=== PATIENT | female | born 1985 | race Caucasian/White ===

== ENCOUNTER 2019-07-08 17:52 | Emergency (ER) | payer OTHER ==
[2019-07-08 18:30] LABS: Urine Blood TRACE (NEG); Urine Glucose NEGATIVE (NEG); Urine Protein NEGATIVE (NEG)
[2019-07-08 18:58] LABS: Absolute Lymphocytes (CBC) 2.4 K/uL (0.7-4.9); Hematocrit 37.2 % (36.0-45.0); Lymphocytes % 35.4 % (15.3-44.8); MPV 8.2 fL (7.6-11.3); RBC Red Blood Cell Count 4.18 M/uL (3.86-4.86)
[2019-07-08 19:07] LABS: Urine Bacteria >50 /HPF (<20); Urine Culture Reflex Order REFLEXED
[2019-07-08 19:18] LABS: Albumin 3.7 g/dL (3.4-5.0); Bilirubin Direct 0.1 mg/dL (0-0.2); Bilirubin Total 0.3 mg/dL (0.2-1.0); Potassium 4.1 mmol/L (3.5-5.1); Protein, Total 7.3 g/dL (6.4-8.2)
--- NOTE | 2019-07-08 20:40 | EDPHYS ---
Physician Documentation [facility] Name: Gisselle Yeboah Age: 34 yrs Sex: Female : 1985 Arrival Date: 07/08/2019 Time: 17:56 Bed 23 Private MD: ED Physician Patrick Brown HPI: 07/08 18:30 This 34 yrs old Female presents to ER via Ambulatory with complaints of cp Fever, Vaginal Discharge, Pelvic Problem. 18:30 The patient presents with a possible exposure to a sexually transmitted disease, cp vaginal discharge, that is green discharge, purulent discharge. 18:30 The patient reports fever, not measured (subjective). Onset: The symptoms/episode cp began/occurred yesterday. 18:30 Patient reports having sexual encounter with and another partner several weeks cp ago. Noticed vaginal discharge and thought it was a yeast infection. No improvement with OTC cream, so she saw her PCP and MILITARY COOK who diagnosed her with bacterial vaginosis and treated her with oral metronidazole. Patient reports she was screened for sexually transmitted diseases and told tests were negative. Vaginal discharge returned and now having lower abdomen pain. MILITARY COOK: 18:33 LMP 06/05/2019 ca1 Historical: - Allergies: 18:08 Ceclor; sv - PMHx: 18:08 Migraines; sv - PSHx: 18:08 ; Knee surgery; sv - Immunization history:: Adult Immunizations up to date. - Social history:: Smoking status: Patient/guardian denies using tobacco. - Ebola Screening: : Patient negative for fever greater than or equal to 101.5 degrees Fahrenheit, and additional compatible Ebola Virus Disease symptoms Patient denies exposure to infectious person Patient denies travel to an Ebola-affected area in the 21 days before illness onset No symptoms or risks identified at this time. ROS: 18:40 Constitutional: Negative for body aches, chills, fever, poor PO intake. cp 18:40 Eyes: Negative for injury, pain, redness, and discharge. cp 18:40 ENT: Negative for drainage from ear(s), ear pain, sore throat, difficulty swallowing, difficulty handling secretions. 18:40 Cardiovascular: Negative for chest pain, palpitations. 18:40 Respiratory: Negative for cough, shortness of breath, wheezing. 18:40 Abdomen/GI: Positive for abdominal pain, of the right lower quadrant and left lower quadrant, Negative for vomiting, diarrhea, constipation, black/tarry stool, rectal bleeding. 18:40 Back: Negative for injury or acute deformity, pain with movement. 18:40 : Positive for pelvic pain, vaginal discharge, Negative for urinary symptoms, flank pain, difficulty urinating. 18:40 Skin: Negative for rash. 18:40 Neuro: Negative for altered mental status, headache, weakness. 18:40 All other systems are negative. Exam: 18:45 Constitutional: The patient appears in no acute distress, alert, awake, comfortable, cp non-toxic, well developed, well nourished. 18:45 Head/Face: Normocephalic, atraumatic. cp 18:45 Eyes: Periorbital structures: appear normal, Conjunctiva: normal, no exudate, no injection, Lids and lashes: appear normal, bilaterally. 18:45 ENT: External ear(s): are unremarkable, Nose: is normal, Mouth: is normal, Posterior pharynx: is normal, airway is patent, no erythema, no exudate. 18:45 Chest/axilla: Inspection: normal, Palpation: is normal, no crepitus, no tenderness. 18:45 Cardiovascular: Rate: normal, Rhythm: regular. 18:45 Respiratory: the patient does not display signs of respiratory distress, Respirations: normal, no use of accessory muscles, no retractions, no splinting, no tachypnea, labored breathing, is not present, Breath sounds: are clear throughout, no decreased breath sounds, no stridor, no wheezing. 18:45 Abdomen/GI: Inspection: abdomen appears normal, Bowel sounds: active, all quadrants, Palpation: soft, in all quadrants, mild abdominal tenderness, in the right lower quadrant and left lower quadrant, rebound tenderness, is not appreciated, involuntary guarding, is not appreciated. 18:45 Back: CVA tenderness, is absent. 18:45 Skin: no rash present. 19:05 : Pelvic Exam: External exam: no lesions, no ulcerations, no warts seen, Speculum cp exam: no bleeding is noted, os that is closed, no tissue in cervix is seen, no tissue in vagina is seen, bimanual exam reveals cervical motion tenderness, uterine tenderness, right adnexal tenderness, left adnexal tenderness, no adnexal mass on right, no adnexal mass on left, discharge, green, the nurse was present for the exam, Sexual behavior: the patient is sexually active, and reports multiple partners. Vital Signs: 18:08 BP 126 / 81; Pulse 77; Resp 16; Temp 98.7; Pulse Ox 100% ; Weight 88 kg; Height 6 ft. 0 sv in. (182.88 cm); 19:16 BP 133 / 88; Pulse 73; Resp 17 S; Pulse Ox 100% on R/A; wh 20:56 BP 123 / 94; Pulse 71; Resp 17 S; Temp 98.5(O); Pulse Ox 100% ; ca1 21:44 BP 128 / 85; Pulse 70; Resp 17 S; Temp 98.4(O); Pulse Ox 100% on R/A; ca1 18:08 Body Mass Index 26.31 (88.00 kg, 182.88 cm) sv MDM: 18:19 Patient medically screened. cp 18:50 Differential diagnosis: cervicitis, UTI, pelvic inflammatory disease, urinary tract cp infection, vaginosis. 20:37 Data reviewed: vital signs, nurses notes, lab test result(s), radiologic studies, cp ultrasound. 20:37 Counseling: I had a detailed discussion with the patient and/or guardian regarding: the cp historical points, exam findings, and any diagnostic results supporting the discharge/admit diagnosis, lab results, radiology results, the need for outpatient follow up, an OB/Gyne specialist, to return to the emergency department if symptoms worsen or persist or if there are any questions or concerns that arise at home. Response to treatment: the patient's symptoms have markedly improved after treatment, and as a result, I will discharge patient. ED course: VSS. Instructed patient on recommendation for all sexual partners to be treated for GC/chlamydia to prevent reinfection. Finish antibiotics before resuming sexual activities. 07/08 18:22 Order name: Urine Dipstick--Ancillary (enter results); Complete Time: 18:34 eb 07/08 18:22 Order name: Urine --Ancillary (enter results); Complete Time: 18:34 eb 07/08 18:36 Order name: Urine Microscopic Only; Complete Time: 20:02 cp 07/08 20:02 Interpretation: Normal except: UWBC 10-20; URBC 5-10; UBACT >50. cp 07/08 18:36 Order name: Basic Metabolic Panel; Complete Time: 20:02 cp 07/08 18:36 Order name: CBC with Diff; Complete Time: 20:02 cp 07/08 18:36 Order name: Creatinine for Radiology; Complete Time: 20:02 cp 07/08 18:36 Order name: Hepatic Function; Complete Time: 20:02 cp 07/08 18:36 Order name: Lipase; Complete Time: 20:02 cp 07/08 18:36 Order name: IV Saline Lock; Complete Time: 18:55 cp 07/08 18:36 Order name: GC (GONORR/CHLAMYDIA) Probe cp 07/08 18:36 Order name: Wet Prep; Complete Time: 20:02 cp 07/08 18:36 Order name: US Transvaginal Study (Probe); Complete Time: 21:10 cp 07/08 21:10 Interpretation: Reviewed report. cp 07/08 19:10 Order name: Urine Culture EDMS 07/08 18:36 Order name: Labs collected and sent; Complete Time: 18:55 cp 07/08 18:36 Order name: Pelvic Exam Setup; Complete Time: 18:43 cp Administered Medications: 20:55 Drug: Rocephin - (cefTRIAXone) 1 grams Route: IVPB; Infused Over: 30 mins; Site: left ca1 antecubital; 21:47 Follow up: Response: No adverse reaction; IV Status: Completed infusion ca1 Disposition: 07/08/19 20:38 Discharged to Home. Impression: Abdominal and pelvic pain. - Condition is Stable. - Discharge Instructions: Pelvic Pain, Female. - Prescriptions for Diflucan 150 mg Oral Tablet - take 1 tablet by ORAL route every other day for 2 days; 2 tablet. Ibuprofen 800 mg Oral Tablet - take 1 tablet by ORAL route every 8 hours As needed take with food; 30 tablet. Doxycycline Hyclate 100 mg Oral Tablet - take 1 tablet by ORAL route every 12 hours; 20 tablet. Metronidazole 500 mg Oral Tablet - take 1 tablet by ORAL route every 8 hours; 30 tablet. - Medication Reconciliation Form, Thank You Letter, Antibiotic Education, Prescription Opioid Use form. - Follow up: Private Physician; When: 1 week; Reason: Recheck today's complaints. - Problem is new. - Symptoms have improved. Addendum: 07/11/2019 09:33 Co-signature as Attending Physician, Patrick Brown MD I agree with the assessment and k dr plan of care. Signatures: Dispatcher [employer] Anahi Serna, RN RN Patrick Hernandes MD MD [facility] Ryne Robert PA PA cp Acob, Magali RN RN ca1 Corrections: (The following items were deleted from the chart) 07/08 21:48 20:38 07/08/2019 20:38 Discharged to Home. Impression: Abdominal and pelvic pain. ca1 Condition is Stable. Forms are Medication Reconciliation Form, Thank You Letter, Antibiotic Education, Prescription Opioid Use. Follow up: Private Physician; When: 1 week; Reason: Recheck today's complaints. Problem is new. Symptoms have improved. cp 07/09 19:15 19:13 The patient reports fever, not measured (subjective), cp cp 19:15 19:13 Onset: The symptoms/episode began/occurred yesterday, cp cp
--- NOTE | 2019-07-08 20:40 | ER ---
Nurse's Notes [facility] Name: Gisselle Yeboah Age: 34 yrs Sex: Female : 1985 Arrival Date: 07/08/2019 Time: 17:56 Bed 23 Private MD: Diagnosis: Abdominal and pelvic pain Presentation: 07/08 18:06 Presenting complaint: Patient states: "My and I had a wild night out a few sv weeks ago and we used protection with the other alliance party and I saw my TOOL AND DIE TECHNICIAN and did a full STD panel and said it was negative." Was given prescriptions and has finished those but the symptoms are back and she now has green vaginal discharge, lower abd pain, vulva and labia swelling. Transition of care: patient was not received from another setting of care. Onset of symptoms was July 08, 2019. Risk Assessment: Do you want to hurt yourself or someone else? Patient reports no desire to harm self or others. Care prior to arrival: None. 18:06 Method Of Arrival: Ambulatory sv 18:06 Acuity: DAVID 3 sv 18:33 Initial Sepsis Screen: Does the patient meet any 2 criteria? No. Patient's initial ca1 sepsis screen is negative. Does the patient have a suspected source of infection? No. Patient's initial sepsis screen is negative. Triage Assessment: 18:06 General: Appears in no apparent distress. uncomfortable, well developed, Behavior is sv calm, cooperative, appropriate for age. Pain: Complains of pain in suprapubic area, right lower quadrant and left lower quadrant. Neuro: Level of Consciousness is awake, alert, obeys commands, Oriented to person, place, time, situation, Gait is steady. Respiratory: Respiratory effort is even, unlabored, Respiratory pattern is regular, symmetrical. : Reports discharge, green. TOOL AND DIE TECHNICIAN: 18:33 LMP 06/05/2019 ca1 Historical: - Allergies: 18:08 Ceclor; sv - PMHx: 18:08 Migraines; sv - PSHx: 18:08 ; Knee surgery; sv - Immunization history:: Adult Immunizations up to date. - Social history:: Smoking status: Patient/guardian denies using tobacco. - Ebola Screening: : Patient negative for fever greater than or equal to 101.5 degrees Fahrenheit, and additional compatible Ebola Virus Disease symptoms Patient denies exposure to infectious person Patient denies travel to an Ebola-affected area in the 21 days before illness onset No symptoms or risks identified at this time. Screenin:29 Abuse screen: Denies threats or abuse. Denies injuries from another. Nutritional ca1 screening: No deficits noted. Tuberculosis screening: No symptoms or risk factors identified. Fall Risk None identified. Assessment: 18:29 General: Appears in no apparent distress. comfortable, Behavior is calm, cooperative, ca1 appropriate for age. Pain: Complains of pain in abdomen and left lower quadrant and right lower quadrant and suprapubic area Pain currently is 2 out of 10 on a pain scale. Pain began 1 day ago. Neuro: Level of Consciousness is awake, alert, obeys commands, Oriented to person, place, time, situation. Cardiovascular: Heart tones S1 S2 present Capillary refill < 3 seconds Patient's skin is warm and dry. Respiratory: Airway is patent Respiratory effort is even, unlabored, Respiratory pattern is regular, symmetrical, Breath sounds are clear bilaterally. GI: Abdomen is flat, non-distended, Bowel sounds present X 4 quads. Abd is soft and non tender X 4 quads. : Reports burning with urination, since yesterday discharge, green, since yesterday urgency, urinary frequency. EENT: No deficits noted. No signs and/or symptoms were reported regarding the EENT system. Derm: Skin is intact, is healthy with good turgor, Skin is pink, warm \\T\\ dry. Musculoskeletal: Circulation, motion, and sensation intact. Capillary refill < 3 seconds, Range of motion: intact in all extremities. 19:16 Reassessment: Patient appears in no apparent distress at this time. Patient and/or wh family updated on plan of care and expected duration. Pain level reassessed. Patient is alert, oriented x 3, equal unlabored respirations, skin warm/dry/pink. 20:00 Reassessment: Patient appears in no apparent distress at this time. Patient and/or ca1 family updated on plan of care and expected duration. Pain level reassessed. Patient is alert, oriented x 3, equal unlabored respirations, skin warm/dry/pink. 20:56 Reassessment: Patient appears in no apparent distress at this time. Patient is alert, ca1 oriented x 3, equal unlabored respirations, skin warm/dry/pink. IV antibiotics infusing. Will discharge once completed. 21:44 Reassessment: Patient appears in no apparent distress at this time. Patient is alert, ca1 oriented x 3, equal unlabored respirations, skin warm/dry/pink. Vital Signs: 18:08 BP 126 / 81; Pulse 77; Resp 16; Temp 98.7; Pulse Ox 100% ; Weight 88 kg; Height 6 ft. 0 sv in. (182.88 cm); 19:16 BP 133 / 88; Pulse 73; Resp 17 S; Pulse Ox 100% on R/A; wh 20:56 BP 123 / 94; Pulse 71; Resp 17 S; Temp 98.5(O); Pulse Ox 100% ; ca1 21:44 BP 128 / 85; Pulse 70; Resp 17 S; Temp 98.4(O); Pulse Ox 100% on R/A; ca1 18:08 Body Mass Index 26.31 (88.00 kg, 182.88 cm) sv ED Course: 17:56 Patient arrived in ED. mr 18:07 Triage completed. sv 18:08 Arm band placed on. sv 18:12 Magali Antony, RN is Primary Nurse. ca1 18:18 Ryne Robert PA is PHCP. cp 18:18 Patrick Brown MD is Attending Physician. cp 18:29 Patient has correct armband on for positive identification. Placed in gown. Bed in low ca1 position. Call light in reach. Side rails up X 1. Pulse ox on. NIBP on. Warm blanket given. 18:53 Initial lab(s) drawn, by ms, sent to lab. Inserted saline lock: 18 gauge 20 gauge in tm3 left antecubital area, using aseptic technique. 19:18 Assist provider with pelvic exam: Set up pelvic tray. Performed by Magali Antony RN ca1 Specimens sent to lab. Patient tolerated well. 19:59 Ultrasound completed. Patient tolerated well. sg3 20:01 US Transvaginal Study (Probe) In Process Unspecified. EDMS 21:46 IV discontinued, intact, bleeding controlled, No redness/swelling at site. Pressure ca1 dressing applied. Administered Medications: 20:55 Drug: Rocephin - (cefTRIAXone) 1 grams Route: IVPB; Infused Over: 30 mins; Site: left ca1 antecubital; 21:47 Follow up: Response: No adverse reaction; IV Status: Completed infusion ca1 Outcome: 20:38 Discharge ordered by . sepideh 21:46 Discharged to home ambulatory. ca1 21:46 Condition: stable 21:46 Discharge instructions given to patient, Instructed on discharge instructions, follow up and referral plans. medication usage, safe sex practices, Demonstrated understanding of instructions, follow-up care, medications, Prescriptions given X 4. 21:48 Patient left the ED. ca1 Signatures: Dispatcher [employer] EDMS Juwan Bynum tm3 Anahi Doherty RN RN Kalee Cuevas mr Ryne Robert PA PA cp Habalo, Winsy Marsha Vaughn sg3 Magali Antony RN RN ca1 Corrections: (The following items were deleted from the chart) 18:09 18:08 Pulse 77bpm; Resp 16bpm; Pulse Ox 100%; Temp 98.7F; 88 kg; Height 6 ft. 0 in.; sv BMI: 26.3; sv 18:14 18:06 Presenting complaint: Patient states: "My and I had a wild night out a sv few weeks ago and I saw my TOOL AND DIE TECHNICIAN and did a full STD panel and said it was negative." Was given prescriptions and has finished those but the symptoms are back and she now has green vaginal discharge, lower abd pain, vulva and labia swelling. sv 19:19 19:17 Assist provider with pelvic exam: Set up pelvic tray. Performed by Ryne GREGORY ca1 Specimens sent to lab. Patient tolerated well.
--- NOTE | 2019-07-08 20:47 | RAD REPORT ---
EXAM DESCRIPTION: US - Transvaginal Study Probe - 07/08/2019 8:15 pm CLINICAL HISTORY: Pelvic pain COMPARISON: 2017 FINDINGS: The uterus measures 8 x 4 x 4cm. A fibroid is not seen. Endometrial stripe measures 8 mill imeter The ovaries are normal in size and echotexture. 1.3 centimeter complex left ovarian follicle. Right and left adnexal unremarkable No significant free fluid is seen. IMPRESSION: Unremarkable pelvic ultrasound
[2019-07-08] MEDS ORDERED: NA CHLORIDE 0.9% 100 ML IV ONE (20:49)
[2019-07-08] MEDS ORDERED: CEFTRIAXONE 1000 MG/VIAL ONE (20:49)
[2019-07-08 22:15] VITALS: O2SAT 100
[2019-07-08 22:19] VITALS: BP 128/85; TEMP 98.4
[2019-07-12 10:04] LABS: C.trachomatis RNA,TMA Not Detected (Not Detected)
== END 2019-07-08 21:48 | disposition home or self-care (01) ==
LOC: ER 17:52
DX: R10.2 Pelvic and perineal pain (principal); R10.9 Unspecified abdominal pain; Z88.8 Allergy status to other drugs, medicaments and biological substances
CPT/HCPCS: 36415; 76830; 80048; 80076; 81003; 81015; 81025; 83690; 85025; 87086; 87088; 87210; 87490; 87590; 96365; 99284

== ENCOUNTER 2022-10-05 09:44 | Inpatient (IN) | payer BC, OTHER ==
--- OUTSIDE RECORDS SUMMARY | 2022-10-05 09:53 | XMS REPORT | Continuity of Care Document ---
:1985 Author Organization [facility] t Address [address] [place] [address] Dr. Carranza. [address] [place] [address] Care Team Providers Name Role Phone PCP, PATIENT DOES NOT HAVE A Primary Care Physician UnavailWICHO Mackenzie Attending Clinician Unavailable Wicho Avendano MD Attending Clinician Case RNMaeve Attending Clinician Unavailable Doctor Unassigned, [place] Attending Clinician Unavailable ABE PIERCE Attending Clinician Unavailable Kellee Ashford Attending Clinician Lab, Adc Fam Pob I Attending Clinician Unavailable JACINTO HENNING Attending Clinician Unavailable Pob1, Acute [facility] Attending Clinician Unavailable KELLEE JOHNSON Attending Clinician Unavailable DR EVELYN MAY Attending Clinician Unavailable VANESSA DELACRUZ Admitting Clinician Unavailable DR EVELYN MAY Admitting Clinician Unavailable Payers Payer Name Policy Type Policy Number Effective Date Expiration Date S ource BCBS [facility] - [id number] 2021 00:00:00 OUT OF STATE [employer]IG[employer] GENERIC [id number] 2020 00:00:00 Problems Condition Condition Condition Status Onset Resolution Last Treating Co mments Source Name Details Category Date Date Treatment Clinician Date Lymphadeno Lymphadeno Disease Active U nivers williams williams 6-04 ity of 00:00: [place] [address] Medical Branch Other Other Disease Active 2019-11 Univers migraine migraine 2-08 ity of without without 00:00: [place] status status 00 Medical migrainosu migrainosu Br anch s, not s, not intractabl intractabl e e History of History of Disease Active 2019-11 U nivers gestationa gestationa 2-08 it y of l l 00:00: [place] hypertensi hypertensi 00 Me dical on on Branch History of History of Disease Active 2019-11 U nivers 2-08 ity of section section 00:00: [place] 00 Medical Branch Allergies, Adverse Reactions, Alerts Allergy Allergy Status Severity Reaction(s) Onset Inactive Treating Comm ents Source Name Type Date Date Clinician Cefaclor Drug Active Unknown - 2019-11 Unive rs Allergy See comments 12-17 ity of 00:00: [place] 00 Medical Branch CEFACLOR DRUG Active Unknown-Cmnt 2019-11 Un jeanette INGREDI 2 ity of 00:00: [place] 00 Medical Branch Social History Social Habit Start Date Stop Date Quantity Comments Source History SDOH University o f Alcohol Std [place] Medical Drinks Branch History SDOH University o f Alcohol Binge [place] [facility] al Branch History SDOH University o f Alcohol Comment [place] [facility] ical [facility] Alcohol intake 2021-05-02 2021-05-02 Lifetime University of 00:00:00 00:00:00 non-drinker [place] [facility] (finding) Branch History SDOH 2020-10-16 2020-10-16 1 University o f Alcohol Frequency 00:00:00 00:00:00 [facility] edical Branch Tobacco use and 2020-05-10 2020-05-10 Never used Universit y of exposure 00:00:00 00:00:00 [facility] Sex [birth year] Universit y of 00:00:00 00:00:00 [facility] Branch Smoking Status Start Date Stop Date Source Never smoker [facility] Medical Branch Medications Ordered Filled Start Stop Current Ordering Indication Dosage Frequency Signature Comments Components Source Medication Medication Date Date Medication? Clinician (SIG) Name Name raenoiiv21/ 2021- No Take by Un jeanette iron 02-25 mouth. ity of marquez/folic/ 16:28: 00:00 [place] dha 42 :00 Medical ( Branch DHA+COMPLET E ORAL) LECITHIN, 2021- No Univers BULK, MISC 4-19 -19 ity of 16:28: 00:00 [place] 33 :00 Medical Branch zolpidem Yes Ambien Univers (AMBIEN) 10 4-19 ity of mg tablet 15:11: Medical Branch IBUPROFEN Yes Take by Unive rs ORAL 4-19 mouth. ity of 15:11: Medical Branch zolpidem Yes Ambien Univers (AMBIEN) 10 4-19 ity of mg tablet 15:11: Medical Branch IBUPROFEN Yes Take by Unive rs ORAL 4-19 mouth. ity of 15:11: Medical Branch zolpidem Yes Ambien Univers (AMBIEN) 10 - ity of mg tablet 15:11: Medical Branch IBUPROFEN Yes Take by Unive rs ORAL 4-19 mouth. ity of 15:11: Medical Branch norethindro Yes [id number] 1{tbl} Take 1 Univers ne-e.estrad 4-19 tablet by ity of ioL-iron 00:00: mouth [place] (LO 00 daily. Medical LOESTRIN Branch FE) 1 mg-10 mcg (24)/10 mcg (2) per tablet norethindro Yes [id number] 1{tbl} Take 1 Univers ne-e.estrad 4-19 tablet by ity of ioL-iron 00:00: mouth [place] (LO 00 daily. Medical LOESTRIN Branch FE) 1 mg-10 mcg (24)/10 mcg (2) per tablet norethindro Yes [id number] 1{tbl} Take 1 Univers ne-e.estrad 4-19 tablet by ity of ioL-iron 00:00: mouth [place] (LO 00 daily. Medical LOESTRIN Branch FE) 1 mg-10 mcg (24)/10 mcg (2) per tablet FAMOTIDINE 2020-11 Yes [id number] TAKE 1 Univers 40 mg 2-27 TABLET BY ity of tablet 00:00: MOUTH [place] 00 EVERY 24 Medical HOURS Branch NEEDED FOR INDIGESTIO N FAMOTIDINE 2020-11 Yes [id number] TAKE 1 Univers 40 mg 2-27 TABLET BY ity of tablet 00:00: MOUTH [place] 00 EVERY 24 Medical HOURS Branch NEEDED FOR INDIGESTIO N FAMOTIDINE 2020-11 Yes [id number] TAKE 1 Univers 40 mg 2-27 TABLET BY ity of tablet 00:00: MOUTH [place] 00 EVERY 24 Medical HOURS Branch NEEDED FOR INDIGESTIO N sumatriptan 2019-11 Yes Univer s 100 mg 1-04 ity of tablet 00:00: [place] [facility] sumatriptan 2019-11 Yes Univer s 100 mg 1-04 ity of tablet 00:00: Medical Branch sumatriptan 2019-11 Yes Univer s 100 mg 1-04 ity of tablet 00:00: [place] 00 [facility] Immunizations Ordered Filled Immunization Date Status Comments [facility] e Immunization Name Name TDAP 2021-01-10 Completed [facility] 00:00:00 [facility] TDAP 2021-01-10 Completed [facility] 00:00:00 [facility] TDAP 2021-01-10 Completed [facility] 00:00:00 [facility] Influenza Virus 2020-10-16 Completed Universit y of Vaccine Quad .5 mL 00:00:00 [facility] IM 6+ [place] Branch Influenza Virus 2020-10-16 Completed Universit y of Vaccine Quad .5 mL 00:00:00 [facility] IM 6+ [place] Branch Influenza Virus 2020-10-16 Completed Universit y of Vaccine Quad .5 mL 00:00:00 [facility] IM 6+ [place] Branch Vital Signs Vital Name Observation Time Observation Value Comments Source Systolic blood 2022-02-25 20:10:00 120 mm[Hg] Univer sity of pressure [facility] Diastolic blood 2022-02-25 20:10:00 77 mm[Hg] Unive rsity of pressure [facility] Heart rate 2022-02-25 20:10:00 71 /min [facility] Body temperature 2022-02-25 20:10:00 36.56 Ambika [facility] Respiratory rate 2022-02-25 20:10:00 18 /min [facility] Body height 2022-02-25 20:10:00 182.9 cm [facility] Body weight 2022-02-25 20:10:00 102.513 kg [facility] BMI 2022-02-25 20:10:00 30.65 kg/m2 [facility] Procedures Procedure Date / Time Performed Performing Clinician Henry e TESTOSTERONE, FREE 2022-04-17 16:38:00 Wicho Avendano of [place] AND$TOTAL, LC/MS/MS-Q Medical Br anch Encounters Start End Encounter Admission Attending Care Care Encounter Source Date/Time Date/Time Type Type Clinicians Facility Department ID 2021-09-08 Outpatient P [facility] MADELYN [id number] Univers 18:35:41 ity [facility] 2022-06-26 2022-06-26 Outpatient R WICHO AVENDANO [facility] [id number] Univers 13:30:00 13:30:00 ity [facility] 2022-06-09 2022-06-09 Outpatient R WICHO AVENDANO [facility] [id number] Univers 14:00:00 14:00:00 ity [facility] 2022-04-17 2022-04-17 Orders Wicho Avendano [id number] Univers 00:00:00 00:00:00 Only PATI [id number] it y of HOSPITAL 4.2.7.2.686 [place] as [id number] [facility] 009 Branch 2022-03-07 2022-03-07 Patient Case, Maeve NVIMANI WORKMAN [id number] Univers 00:00:00 00:00:00 Secure Msg Armani SUMNER [id number] ity [place] [facility] [id number] [facility] 134 Branch 2022-02-25 2022-02-25 Outpatient R WICHO AVENDANO [facility] [id number] Univers 15:00:00 15:46:47 ity [facility] 2022-02-25 2022-02-25 Office Wicho Avendano [facility] WORKMAN [id number] Univers 15:00:00 15:46:47 Visit TAISHA [id number] it y of [place] [facility] [id number] [facility] 134 Branch 2022-02-25 2022-02-25 Barbie SERVIN [id number] Univers 00:00:00 00:00:00 Only Unassigned, PATI [id number] ity of [place] [facility] 4.2.7.2.686 [place] [id number] [address] 2022-02-17 2022-02-17 Orders Doctor GARETH [id number] Univers 00:00:00 00:00:00 Only Unassigned, PATI [id number] ity of [place] [facility] 4.2.7.2.686 [place] [id number] [address] 2021-11-12 2021-11-12 Orders Doctor GARETH [id number] Univers 00:00:00 00:00:00 Only Unassigned, PATI 350.1.13.10 ity of [place] [facility] 4.2.7.2.686 [place] [id number] [address] 2021-10-31 2021-10-31 Refill Wicho Avendano [facility] [id number] Univers 00:00:00 00:00:00 TAISHA [id number] it y of W[place]2.[place] [facility] [id number] [place] [address] Branch 2021-05-16 2021-05-16 Outpatient R LANCE AVENDANON [facility] [id number] Univers 13:30:00 13:30:00 ity [facility] 2021-05-02 2021-05-02 Outpatient R LANCE AVENDANON [facility] [id number] Univers 13:00:00 13:00:00 ity [facility] 2021-04-11 2021-04-11 Outpatient R LANCE AVENDANON [facility] [id number] Univers 16:15:00 16:15:00 ity [facility] 2021-03-28 2021-03-28 Outpatient R [facility] [id number] Univers 14:00:00 14:00:00 ity [facility] 2021-03-21 2021-03-21 Outpatient R LANCE AVENDANON [facility] [id number] Univers 09:45:00 09:45:00 ity [facility] 2021-03-14 2021-03-14 Outpatient R WICHO AVENDANO [facility] [id number] Univers 08:30:00 08:30:00 ity of [facility] 2021-03-07 2021-03-07 Outpatient R WICHO AVENDANO [facility] [id number] Univers 08:30:00 08:30:00 ity of [facility] 2021-02-28 2021-02-28 Outpatient R WICHO AVENDANO [facility] [id number] Univers 08:00:00 08:00:00 ity of [facility] 2021-02-26 2021-02-26 Outpatient R WICHO AVENDANO [facility] [id number] Univers 13:45:00 13:45:00 ity of [facility] 2021-02-11 2021-02-11 Outpatient R WICHO AVENDANO [facility] [id number] Univers 09:30:00 09:30:00 ity of [facility] 2021-02-08 2021-02-08 Outpatient P [facility] [id number] Univers 12:00:00 12:00:00 ity of [facility] 2021-02-04 2021-02-04 Outpatient P [facility] [id number] Univers 15:00:00 15:00:00 ity [facility] 2021-01-24 2021-01-24 Outpatient R WICHO AVENDANO [facility] [id number] Univers 08:30:00 08:30:00 ity of [facility] 2021-01-18 2021-01-18 Outpatient R WICHO AVENDANO [facility] [id number] Univers 11:30:00 11:30:00 ity of [facility] 2021-01-14 2021-01-14 Outpatient R FISHWICHO [facility] [id number] Univers 13:15:00 13:15:00 ity of [facility] 2021-01-10 2021-01-10 Outpatient R FISHWICHO [facility] [id number] Univers 13:30:00 13:30:00 ity of [facility] 2020-12-13 2020-12-13 Outpatient R WICHO AVENDANO [facility] [id number] Univers 16:15:00 16:15:00 ity [facility] 2020-12-10 2020-12-10 Outpatient P [facility] [id number] Univers 14:30:00 14:30:00 ity [facility] 2020-11-15 2020-11-15 Outpatient R WICHO AVENDANO [facility] [id number] Univers 14:15:00 14:15:00 ity [facility] 2020-11-12 2020-11-12 Outpatient P [facility] [id number] Univers 14:15:00 14:15:00 ity [facility] 2020-10-22 2020-10-22 Outpatient R WICHO AVENDANO [facility] [id number] Univers 16:20:00 16:20:00 ity [facility] 2020-10-16 2020-10-16 Outpatient R WICHO AVENDANO [facility] [id number] Univers 15:45:00 15:45:00 ity [facility] 2020-08-22 2020-08-22 Outpatient R ABE PIERCE [facility] [id number] Univers 14:15:00 14:15:00 ity [facility] 2020-05-31 2020-05-31 Telephone MaríaGARETH young [id number] 00:00:00 00:00:00 Kellee KRUEGER 350.1.13.10 [facility] 4.2.7.2.686 [id number] 2020-05-30 2020-05-30 Laboratory Lab, [facility] [id number] [id number] 12:51:52 13:11:52 Only Fam Pob I Health [id number] [place] 4.2.7.2.686 Professio [id number] nal [address] 2020-05-30 2020-05-30 Outpatient R [facility] [id number] Univers 13:00:00 13:00:00 ity [facility] 2020-05-24 2020-05-24 Outpatient R JUVENCIO [facility] [id number] Univers 09:40:00 09:40:00 OMAYEMI ity [facility] 2020-05-10 2020-05-10 Urgent Pob1, Acute [facility] [id number] 14:31:46 14:51:46 [facility] 350.1.13.10 [place] 4.2.7.2.686 Dm [id number] nal [address] 2020-05-10 2020-05-10 Outpatient Deepa JOHNSON [facility] [id number] Univers 14:20:00 14:20:00 KELLEE see [facility] 2018-09-13 2018-09-13 [facility] [id number] 05:26:00 12:05:00 [facility] Results Test Description Test Time Test Comments Results Result Comments Source TESTOSTERONE, FREE AND$TOTAL, LC/MS/MS-Q 2022-04-20 17:00:00 Test Item Value Reference Range Interpretation Comme nts TESTOSTERONE, 13 ng/dL 2-45 For additiona l information, please refer TOTAL, tohttps://educa tion.[employer].Yellow Chip/faq/VRA925(This LC/MS/MS-Q link is being p rovided for informational/educational (test code = purposes only.) (Note) This test was developed and its 2986-8) analytical perf ormancecharacteristics have been determined by dionte [employer]fusion. It has notbeen cleared or approved by the FDA. This assay has been validatedpursua nt to the CLIA regulations and is used for clinical purpos es. FREE 0.7 0.1-6 (Note)This test was developed and its analytical TESTOSTERONE-Q pg/mL .4 performance c haracteristics have been determined by (test code = medfusion. It h as not been cleared or approved by the 2991-8) FDA. This assay has been validated pursuant to the CLIA regulations and is used for clinical purposes. Jaquelineed [email or web address] [place] [address],[address] [place] [address] [id number] [id number] DANYEL Sandy (test code PERFORME = DANYEL) D BY KG Gibbs; [address] [address] [place] [address] [phone] [id number]; Dionte SANDY [facility]
[2022-10-05] MEDS ORDERED: ONDANSETRON 4 MG/2 ML VIAL ONE ×3 (10:00→20:50)
[2022-10-05] MEDS ORDERED: KETOROLAC 30 MG/ML INJ ONE ×2 (10:00→16:12)
[2022-10-05] MEDS ORDERED: NA CHLORIDE 0.9% 1,000 ML ONE ×3 (10:01→21:29)
[2022-10-05 10:03] LABS: Urine Blood 2+ (Negative); Urine Glucose Negative (Negative); Urine Protein 2+ (Negative); Urine pH 5.5 (5.0-7.0)
[2022-10-05 10:09] LABS: Absolute Lymphocytes (CBC) 1.2 K/uL (0.7-4.9); Hematocrit 39.9 % (36.0-45.0); Lymphocytes % 7.2 % (15.3-44.8); MCV 87.7 fL (80-100); MPV 7.8 fL (7.6-11.3); RBC Red Blood Cell Count 4.55 M/uL (3.86-4.86)
[2022-10-05 10:26] LABS: Albumin 3.5 g/dL (3.4-5.0); Bilirubin Total 0.6 mg/dL (0.2-1.0); Potassium 3.4 mmol/L (3.5-5.1); Protein, Total 7.7 g/dL (6.4-8.2)
--- NOTE | 2022-10-05 11:06 | RAD REPORT ---
EXAM DESCRIPTION: CT - Abdomen Pelvis W Contrast - 10/05/2022 10:44 am CLINICAL HISTORY: Abdominal pain COMPARISON: none. TECHNIQUE: Computed axial tomography of the abdomen pelvis was obtained. 100 cc Isovue-300 was admin istered intravenously. Oral contrast was not requested which limits evaluation of bowel and appendix All CT scans are performed using dose optimization technique as appropriate and may include automated exposure control or mA/KV adjustment according to patient size. FINDINGS: The liver, spleen, pancreas, adrenal and left kidney appear unremarkable. Several low-density areas right kidney which reach the periphery. Largest measures 2.5 centimeters. T his likely indicates pyelonephritis. There is no evidence of diverticulitis. No adnexal mass IMPRESSION: Moderate right pyelonephritis
[2022-10-05 11:45] LABS: Transitional Epithelial <5 /HPF (None Seen); Urine Bacteria 20-50 /HPF (<20); Urine Mucus 1+ /HPF (None Seen)
[2022-10-05 12:07] LABS: SARS-COV-2 RT PCR NEGATIVE (NEGATIVE)
[2022-10-05] MEDS ORDERED: Levofloxacin 750mg IV 0 MG/0 ML BAG IV ONE (12:11)
--- NOTE | 2022-10-05 12:11 | ER ---
Nurse's Notes [facility] [place] Name: Gisselle Yeboah Age: 37 yrs Sex: Female : 1985 Arrival Date: 10/05/2022 Time: 09:44 Bed 26 Private MD: Diagnosis: Pyelonephritis acute;Elevated white blood cell count, unspecified Presentation: 10/05 09:51 Chief complaint: Patient states: Burning with urination, bilateral flank pain, body jl7 aches, chills, fever. Coronavirus screen: At this time, the client does not indicate any symptoms associated with coronavirus-19. Ebola Screen: No symptoms or risks identified at this time. 09:51 Method Of Arrival: Wheelchair [facility] 09:54 Initial Sepsis Screen: Does the patient meet any 2 criteria? HR > 90 bpm. Does the jl7 patient have a suspected source of infection? Yes: Dysuria/Frequency/Urgency/UTI. Risk Assessment: Do you want to hurt yourself or someone else? Patient reports no desire to harm self or others. Onset of symptoms was October 03, 2022. 09:54 Acuity: DAVID 3 jl7 Triage Assessment: 09:59 General: Appears in no apparent distress. uncomfortable, ill, Behavior is cooperative, jl7 restless. Pain: Complains of pain in left flank, right flank and abdomen Pain currently is 10 out of 10 on a pain scale. 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 - Social history:: Smoking status: unknown. Screenin:03 Abuse screen: Denies threats or abuse. Nutritional screening: Has had N/V for 3 or more ll1 days. Tuberculosis screening: No symptoms or risk factors identified. Fall Risk IV access (20 points). Gait- Weak (10 pts.). Mental Status- Overestimates/Forgets Limitations (15 pts.). Total Ruiz Fall Scale indicates High Risk Score (45 or more points). Fall prevention measures have been instituted. Side Rails Up X 2 Placed Close to Nursing Station Frequent Obs/Assessments Occuring Family Present and informed to notify staff if the need to leave the bedside As available patient and family educated on Fall Prevention Program and Strategies. Assessment: 10:36 General: Appears uncomfortable, ill, well developed, Behavior is cooperative, flat, kr3 quiet. Pain: Complains of pain in all over body aches. Neuro: Level of Consciousness is awake, alert, obeys commands, Oriented to person, place, time. Cardiovascular: Patient's skin is warm and dry. Respiratory: Airway is patent Trachea Respiratory effort is even, unlabored, Respiratory pattern is regular, symmetrical. GI: Reports nausea, vomiting. : Reports pain flank(s), with urination. EENT: No signs and/or symptoms were reported regarding the EENT system. Derm: Skin is intact. Musculoskeletal: Circulation, motion, and sensation intact. 10:56 Reassessment: No changes from previously documented assessment. Patient and/or family ll1 updated on plan of care and expected duration. Pain level reassessed. 11:31 Reassessment: No changes from previously documented assessment. Patient and/or family ll1 updated on plan of care and expected duration. Pain level reassessed. Patient is alert, oriented x 3, equal unlabored respirations, skin warm/dry/pink. 13:00 Reassessment: Patient appears in no apparent distress at this time. Patient and/or hb family updated on plan of care and expected duration. Pain level reassessed. Patient is alert, oriented x 3, equal unlabored respirations, skin warm/dry/pink. 14:00 Reassessment: No changes from previously documented assessment. Patient and/or family ll1 updated on plan of care and expected duration. Pain level reassessed. Patient is alert, oriented x 3, equal unlabored respirations, skin warm/dry/pink. 14:49 Reassessment: No changes from previously documented assessment. to restroom via ll1 wheelchair. 10/06 11:53 Reassessment: see [facility] chidien admitted. kr3 Vital Signs: 10/05 09:54 BP 117 / 100; Pulse 160; Resp 15; Temp 99.6(O); Pulse Ox 100% on R/A; Weight 88.45 kg; jl7 Height 6 ft. (182.88 cm); Pain 10/10; 10:20 BP 96 / 60; Pulse 139; Resp 16; Pulse Ox 98% on R/A; ll1 10:56 BP 96 / 64; Pulse 97; Pulse Ox 99% ; ll1 11:30 BP 98 / 74; Pulse 98; Pulse Ox 98% on R/A; ll1 13:15 BP 100 / 67; Pulse 96; Pulse Ox 100% on R/A; hb 14:50 BP 105 / 69; Pulse 95; Resp 15; Pulse Ox 100% on R/A; ll1 09:54 Body Mass Index 26.45 (88.45 kg, 182.88 cm) jl7 ED Course: 09:44 Patient arrived in ED. am2 09:44 [facility] Lockwood [facility]C [facility] kb 09:44 Ever Multani MD is Attending Physician. kb 09:55 Triage completed. jl7 09:56 Fabricio Persaud, RN is Primary Nurse. ll1 09:56 Arm band placed on Patient placed in an exam room, on a stretcher. ll1 10:02 Inserted saline lock: 20 gauge in right antecubital area, using aseptic technique. ll1 Blood collected. 10:03 Urine collected: clean catch specimen, cloudy. mm9 10:33 Sae Anaya DO is Attending Physician. kb 10:46 CT Abd/Pelvis - IV Contrast Only In Process Unspecified. EDMS 11:30 Patient has correct armband on for positive identification. Bed in low position. Call ll1 light in reach. Client placed on continuous cardiac and pulse oximetry monitoring. NIBP monitoring applied. 11:35 COVID-19/FLU A+B Sent. ll1 11:36 Urine Microscopic Only Sent. ll1 12:10 Ben Lazo MD is Hospitalizing Provider. kb 16:40 Primary Nurse role handed off by Fabricio Persaud, ELÍAS jl7 10/06 11:51 No provider procedures requiring assistance completed. Patient admitted, IV remains in kr3 place. Administered Medications: 10/05 10:14 Drug: Ketorolac 15 mg Route: IVP; Site: right antecubital; kr3 11:31 Follow up: Response: No adverse reaction; Pain is decreased; RASS: Alert and Calm (0) ll1 10:15 Drug: NS 0.9% 1000 ml Route: IV; Rate: 1 bolus; Site: right antecubital; kr3 11:32 Follow up: Response: No adverse reaction; IV Status: Completed infusion; IV Intake: ll1 1000ml 10:15 Drug: Zofran (Ondansetron) 4 mg Route: IVP; Site: right antecubital; kr3 11:31 Follow up: Response: No adverse reaction ll1 12:31 Drug: LevaQUIN (levofloxacin) 750 mg Volume: 150 ml; Route: IVPB; Infused Over: 90 kr3 mins; Site: left antecubital; Medication: 10:03 VIS not applicable for this client. ll1 Intake: 11:32 IV: 1000ml; Total: 1000ml. ll1 Outcome: 12:10 Decision to Hospitalize by Provider. kb 16:40 Patient left the ED. jl7 10/06 11:51 Admitted to Med/surg kr3 Admitted to Med/surg accompanied by nurse, via stretcher, Report called to ELÍAS Cox Condition: stable Instructed on the need for admit. 11:52 Patient left the ED. kr3 Signatures: Dispatcher [employer] EDMS Gretchen Lockwood, MOLD BLOWER-C MOLD BLOWER-Ckb Charlene Medina, RN RN hb Lynsey Sanchez RN RN jl7 Vanda Hill Lynsay, RN RN ll1 Kassidy Ireland RN RN kr3 Shirley Ny mm9 Corrections: (The following items were deleted from the chart) 10/05 11:31 11:30 BP 98 / 47; Pulse 98bpm; Pulse Ox 98% RA; ll1 ll1 13:22 13:21 BP 100 / 67; Pulse 96bpm; Pulse Ox 100% RA; hb hb
--- NOTE | 2022-10-05 12:11 | EDPHYS ---
Physician Documentation [facility] Name: Gisselle Yeboah Age: 37 yrs Sex: Female : 1985 Arrival Date: 10/05/2022 Time: 09:44 Bed 26 Private MD: ED Physician Sae Anaya HPI: 10/05 12:04 This 37 yrs old Female presents to ER via Wheelchair with complaints of Fever. kb 12:04 The patient complains of pain in the left flank and right flank. The pain does not kb radiate. Onset: The symptoms/episode began/occurred 4 day(s) ago. Modifying factors: The symptoms are alleviated by nothing. the symptoms are aggravated by palpation/percussion. Associated signs and symptoms: Pertinent positives: dysuria, fever, nausea, vomiting. Severity of pain: At its worst the pain was moderate in the emergency department the pain is unchanged. The patient has not experienced similar symptoms in the past. The patient has not recently seen a physician. Pt reports fever, chills, bodyaches, dysuria, bilateral flank pain for 4 days. . 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 - Social history:: Smoking status: unknown. ROS: 12:08 Cardiovascular: Negative for chest pain, palpitations, and edema. kb 12:08 Constitutional: Positive for body aches, chills, fatigue, fever, malaise. 12:08 Abdomen/GI: Positive for nausea and vomiting, Negative for abdominal pain. 12:08 : Positive for urinary symptoms, flank pain, burning with urination. 12:08 All other systems are negative. Exam: 12:08 Constitutional: This is a well developed, well nourished patient who is awake, alert, kb and in no acute distress. Head/Face: Normocephalic, atraumatic. ENT: Moist Mucous membranes Cardiovascular: Regular rate and rhythm with a normal S1 and S2. No gallops, murmurs, or rubs. No pulse deficits. Respiratory: Respirations even and unlabored. No increased work of breathing. Talking in full sentences Abdomen/GI: Soft, non-tender. No distention Skin: Warm, dry with normal turgor. Normal color. MS/ Extremity: Pulses equal, no cyanosis. Neurovascular intact. Full, normal range of motion. Neuro: Awake and alert, GCS 15, oriented to person, place, time, and situation. Moves all extremities. Normal gait. Psych: Awake, alert, with orientation to person, place and time. Behavior, mood, and affect are within normal limits. 12:08 Back: CVA tenderness, that is mild, is noted bilaterally. Vital Signs: 09:54 BP 117 / 100; Pulse 160; Resp 15; Temp 99.6(O); Pulse Ox 100% on R/A; Weight 88.45 kg; jl7 Height 6 ft. (182.88 cm); Pain 10/10; 10:20 BP 96 / 60; Pulse 139; Resp 16; Pulse Ox 98% on R/A; ll1 10:56 BP 96 / 64; Pulse 97; Pulse Ox 99% ; ll1 11:30 BP 98 / 74; Pulse 98; Pulse Ox 98% on R/A; ll1 13:15 BP 100 / 67; Pulse 96; Pulse Ox 100% on R/A; hb 14:50 BP 105 / 69; Pulse 95; Resp 15; Pulse Ox 100% on R/A; ll1 09:54 Body Mass Index 26.45 (88.45 kg, 182.88 cm) jl7 MDM: 09:45 Patient medically screened. kb 12:09 Data reviewed: vital signs, nurses notes. Data interpreted: Pulse oximetry: on room air kb is 98 %. Interpretation: normal. Counseling: I had a detailed discussion with the patient and/or guardian regarding: the historical points, exam findings, and any diagnostic results supporting the discharge/admit diagnosis, lab results, radiology results, the need for further work-up and treatment in the hospital. Physician consultation: Ben Lazo MD was contacted at 12:09, regarding admission, to the medical/surgical unit. patient's condition, and will see patient in ED, shortly. 10/05 09:54 Order name: CBC with Diff; Complete Time: 10:18 kb 10/05 09:54 Order name: CMP; Complete Time: 10:30 kb 11/27 09:54 Order name: Urine Microscopic Only; Complete Time: 11:51 kb 10/05 10:03 Order name: Urine --Ancillary (enter results); Complete Time: 13:53 em1 10/05 10:03 Order name: Urine Dipstick-Ancillary; Complete Time: 10:08 EDMS 10/05 11:07 Order name: Blood Culture Adult (2) kb 10/05 11:07 Order name: Lactate w/ 2H reflex if indic.; Complete Time: 12:00 kb 10/05 11:08 Order name: COVID-19/FLU A+B; Complete Time: 12:10 kb 10/05 11:58 Order name: Urine Culture EDMS 10/05 13:38 Order name: Basic Metabolic Panel EDMS 10/05 13:38 Order name: Basic Metabolic Panel EDMS 10/05 13:38 Order name: CBC with Automated Diff EDMS 10/05 13:38 Order name: CBC with Automated Diff EDMS 10/05 13:38 Order name: Magnesium EDMS 10/05 09:54 Order name: CT Abd/Pelvis - IV Contrast Only; Complete Time: 11:07 kb 10/05 09:54 Order name: IV Saline Lock; Complete Time: 10:02 kb 10/05 09:54 Order name: Labs collected and sent; Complete Time: 10:02 kb 10/05 09:54 Order name: Urine Dipstick-Ancillary (obtain specimen); Complete Time: 10:03 kb 10/05 09:54 Order name: Urine Test (obtain specimen); Complete Time: 10:03 kb 10/05 13:38 Order name: Full Liquid EDMS 10/05 13:38 Order name: Magnesium EDMS Administered Medications: 10:14 Drug: Ketorolac 15 mg Route: IVP; Site: right antecubital; kr3 11:31 Follow up: Response: No adverse reaction; Pain is decreased; RASS: Alert and Calm (0) ll1 10:15 Drug: NS 0.9% 1000 ml Route: IV; Rate: 1 bolus; Site: right antecubital; kr3 11:32 Follow up: Response: No adverse reaction; IV Status: Completed infusion; IV Intake: ll1 1000ml 10:15 Drug: Zofran (Ondansetron) 4 mg Route: IVP; Site: right antecubital; kr3 11:31 Follow up: Response: No adverse reaction ll1 12:31 Drug: LevaQUIN (levofloxacin) 750 mg Volume: 150 ml; Route: IVPB; Infused Over: 90 kr3 mins; Site: left antecubital; Disposition: 12:40 Co-signature as Attending Physician, Sae ESCOBEDO was immediately available on-site ms3 in the Emergency Department for consultation in the care of the patient. Disposition Summary: 10/05/22 12:10 Hospitalization Ordered Hospitalization Status: Inpatient Admission kb Provider: Ben Lazo Condition: Stable kb Problem: new kb Symptoms: are unchanged kb Bed/Room Type: Standard kb Location: Telemetry/MedSurg (Inpatient)(10/06/22 11:03) bd Room Assignment: [facility](10/06/22 11:03) bd Diagnosis - Pyelonephritis acute kb - Elevated white blood cell count, unspecified kb Forms: - Medication Reconciliation Form kb - SBAR form kb Signatures: Dispatcher [employer] EDMS Gretchen Lockwood, GAY FALCON-Fani Wu Jahala RN RN jl7 Sae Anaya DO DO ms3 Kassidy Ireland RN RN kr3 Fabricio Persaud RN ll1 Corrections: (The following items were deleted from the chart) 16:40 12:10 Telemetry/MedSurg (Inpatient) kb jl7 16:40 12:10 kb jl7 10/06 11:03 10/05 16:40 [facility] [[email or web address]] ER HOLD jl7 bd 10/06 11:03 10/05 16:40 ERHOLD- jl7 bd
[2022-10-05] MEDS ORDERED: MORPHINE 2 MG/ML SYR IV PRN (14:29)
--- NOTE | 2022-10-05 14:32 | P.HP ---
Certification for Inpatient Patient admitted to: Inpatient With expected LOS: >2 Midnights Practitioner: I am a practitioner with admitting privileges, knowledge of patient current condition, hospital course, and medical plan of care. Services: Services provided to patient in accordance with Admission requirements found in Title 42 Section 412.3 of the Code of Federal Regulations Patient History Date of Service: 10/05/22 Reason for admission: pyelonephritis History of Present Illness: 37yo F, PMH: insomnia Presents to ED due to a few days of back pain, nausea, and fever to 104. Associated with dysuia and increased urinary frequency. Denies diarrhea, no sick contacts, no change in meds, no neuro symptoms. Pain is located bilateral lower back / CVA area. Also with some suprapubic discomfort. In the ED, found to have leukocytosis, tachycardia, CT: moderate right pyelonephritis. She was given IV fluids, antibiotics, and pain medication for acute pyelonephritis. Allergies cefaclor [From Ceclor] Allergy (Severe, Verified 05/07/17 09:41) Itching/Hives/Rash Home Medications: Zolpidem Tartrate [Ambien] 10 mg PO DAILY 05/07/17 Norethindrone AC-Eth Estradiol [Loestrin 21 1-20 Tablet] 10 mg PO DAILY 10/05/22 SUMAtriptan succinate [Sumatriptan Succinate] 2 mg PO PRN PRN 10/05/22 methocarbamoL [Robaxin*] 1 tab PO PRN PRN 10/05/22 - Past Medical/Surgical History Diabetic: No -: insomnia -: Foot and ankle surgery -: rt. knee surgery -: ceserean section 2011 - Family History Family History: Reviewed- Non-Contributory - Social History Smoking Status: Never smoker Alcohol use: No CD- Drugs: No Caffeine use: Yes Place of Residence: Home Review of Systems 10-point ROS is otherwise unremarkable Physical Examination - Physical Exam General: Alert, Oriented x3, Mild distress HEENT: EOMI, Sclerae nonicteric Neck: Supple, No LAD Respiratory: Clear to auscultation bilaterally, Normal air movement Cardiovascular: No edema, Other (sinus tachycardia) Gastrointestinal: Soft and benign, Non-distended, Tenderness (suprapubic, and b/l flank pain, CVA tenderness) Musculoskeletal: No contractures, No tenderness Neurological: Normal speech, Normal strength at 5/5 x4 extr, Normal affect - Studies Laboratory Data (last 24 hrs) 10/05/22 10:00: Sodium 132 L, Potassium 3.4 L, BUN 12, Creatinine 1.23, Glucose 127 H, Total Bilirubin 0.6, AST 13 L, ALT 17, Alkaline Phosphatase 46 10/05/22 10:00: WBC 16.60 H, Hgb 13.4, Hct 39.9, Plt Count 251 Assessment and Plan - Advance Directives Does patient have a Living Will: No Does patient have a Durable POA for Healthcare: No Physician Review Additional Text: Problem List sepsis secondary to Acute Pyelonephritis, right Insomnia Migraines sepsis, tachycardic, fever, leukocytosis allergy to cefaclor continue levaquin pain meds as needed diet as tolerated anti-emetics confirm home meds pt takes ambien 10mg qHS, continue f/u cultures VTE: lovenox Code: full Dispo: home, ~2-3 days Time Spent Managing Pts Care (In Minutes): 70
[2022-10-05] MEDS ORDERED: KETOROLAC 30 MG/ML INJ IV ONE (15:00)
[2022-10-05] MEDS: Levofloxacin 750mg IV 750 MG/150 ML BAG IV SCH (15:00)
[2022-10-05] MEDS ORDERED: Levofloxacin 750mg IV 750 MG/150 ML BAG IV ONE (16:13)
[2022-10-05] MEDS ORDERED: ENOXAPARIN 40 MG/0.4 ML SQ ONE (16:13)
[2022-10-05] MEDS: NA CHLORIDE 0.9% 1,000 ML IV SCH ×2 (16:34→21:30)
[2022-10-05] MEDS: ENOXAPARIN 40 MG/0.4 ML SQ SCH (16:34)
[2022-10-05 16:47] VITALS: BMI 26.4
[2022-10-05] MEDS ORDERED: CALCIUM CARBONATE CHEW 500MG TAB PO PRN (20:45)
[2022-10-05] MEDS ORDERED: HYDROCODONE/APAP 5/325 MG TAB ONE (20:50)
[2022-10-05] MEDS: ONDANSETRON 4 MG/2 ML VIAL IV PRN (21:26)
[2022-10-05] MEDS: HYDROCODONE/APAP 5/325 MG TAB PO PRN (21:26)
[2022-10-05] MEDS ORDERED: ZOLPIDEM TARTRATE 5 MG TABLET ONE (21:29)
[2022-10-05] MEDS: ZOLPIDEM TARTRATE 5 MG TABLET PO PRN (21:30)
[2022-10-06] MEDS ORDERED: CALCIUM CARBONATE CHEW 500MG TAB ONE (00:48)
[2022-10-06 02:48] LABS: Absolute Lymphocytes (CBC) 1.2 K/uL (0.7-4.9); Hematocrit 35.4 % (36.0-45.0); Lymphocytes % 10.6 % (15.3-44.8); MCV 88.1 fL (80-100); RBC Red Blood Cell Count 4.01 M/uL (3.86-4.86)
[2022-10-06 03:13] LABS: Magnesium 1.8 mg/dL (1.8-2.4); Potassium 4.1 mmol/L (3.5-5.1)
[2022-10-06] MEDS ORDERED: NA CHLORIDE 0.9% 1,000 ML ONE ×2 (04:13→11:12)
[2022-10-06] MEDS: NA CHLORIDE 0.9% 1,000 ML IV SCH ×2 (04:20→11:00)
[2022-10-06] MEDS ORDERED: HYDROCODONE/APAP 5/325 MG TAB ONE (06:16)
[2022-10-06] MEDS: HYDROCODONE/APAP 5/325 MG TAB PO PRN (06:25)
[2022-10-06] MEDS ORDERED: ACETAMINOPHEN 500 MG TAB ONE (07:54)
[2022-10-06] MEDS ORDERED: ENOXAPARIN 40 MG/0.4 ML SQ ONE (07:54)
[2022-10-06] MEDS: ENOXAPARIN 40 MG/0.4 ML SQ SCH (07:57)
[2022-10-06] MEDS: ACETAMINOPHEN 500 MG TAB PO PRN ×3 (07:58→17:29)
[2022-10-06] MEDS: Levofloxacin 750mg IV 750 MG/150 ML BAG IV SCH (15:51)
[2022-10-06] MEDS: ONDANSETRON 4 MG/2 ML VIAL IV PRN (15:55)
[2022-10-06] MEDS ORDERED: NA CHLORIDE 0.9% 1,000 ML IV SCH (17:18)
--- NOTE | 2022-10-06 17:23 | P.PN ---
Date of Service: 10/06/22 Subjective: pain improved but still persists mild nausea, no vomiting urinating ROS: 10 point ROS as noted above, otherwise negative Physical exam GEN: Alert, oriented, uncomfortable appearing HEENT: Normal conjunctiva, sclera anicteric CV: Regular rate and rhythm, no edema Pulm: Nonlabored respirations on room air ABD: Soft, moderate tenderness to palpation in RUQ /mild suprapubic, mild-mod b/l CVA tenderness Neuro: Normal speech, normal affect Problem List sepsis secondary to Acute Pyelonephritis, right Insomnia Migraines sepsis, tachycardic, fever, leukocytosis allergy to cefaclor continue levaquin leukocytosis improving pain improved, but still very tender, uncomfortable monitor closely if worsens, r/o abscess formation pain meds as needed diet as tolerated anti-emetics pt takes ambien 10mg qHS, continue at 5mg while taking opioids f/u cultures - Ur: GNR VTE: lovenox Code: full Dispo: home, ~1-2 days suspect >1 more day given pain level Time Spent Managing Pts Care (In Minutes): 35
[2022-10-06] MEDS: ZOLPIDEM TARTRATE 5 MG TABLET PO PRN (21:11)
[2022-10-07 03:50] LABS: Hematocrit 30.7 % (36.0-45.0); MCV 88.3 fL (80-100); MPV 8.1 fL (7.6-11.3); RBC Red Blood Cell Count 3.47 M/uL (3.86-4.86)
[2022-10-07 04:04] LABS: Magnesium 1.8 mg/dL (1.8-2.4); Phosphorus 1.9 mg/dL (2.5-4.9); Potassium 3.6 mmol/L (3.5-5.1)
[2022-10-07] MEDS: ACETAMINOPHEN 500 MG TAB PO PRN ×2 (04:14→08:40)
[2022-10-07 06:19] VITALS: O2SAT 98
[2022-10-07] MEDS ORDERED: MAGNESIUM SULFATE 1 gm IVPB 1 GM/100 ML BAG IV ONE (07:00)
[2022-10-07 08:10] VITALS: BP 106/58; TEMP 97.8
[2022-10-07] MEDS: ENOXAPARIN 40 MG/0.4 ML SQ SCH (08:39)
[2022-10-07] MEDS: POTASS/SODIUM PHOSPHATE 1 PKT POWD.PACK PO SCH ×2 (08:39→10:50)
[2022-10-07] MEDS ORDERED: POTASSIUM CL SA 10 MEQ TAB PO ONE (09:00)
--- NOTE | 2022-10-07 12:06 | P.DS ---
Admission Date: 10/05/22 Discharge Date: 10/07/22 Disposition: ROUTINE DISCHARGE Discharge Condition: FAIR Reason for Admission: pyelonephritis Brief History of Present Illness: 37yo F, PMH of insomnia presented to the ED due to a few days of back pain, nausea, and fever to 104. Symptoms associated with dysuia and increased urinary frequency. Pain located bilateral lower back and suprapubic area. In the ED, patient found to have leukocytosis, tachycardia and met criteria for sepsis. CT abdomen pelvis demonstrated moderate right pyelonephritis. She was given IV fluids, antibiotics, and pain medication for acute pyelonephritis and admitted for further management. Hospital Course: Diagnosis sepsis secondary to Acute Pyelonephritis. Insomnia Migraines Patient admitted to the medical floor and treated with IV Levaquin Urine culture grew pansensitive E. coli. allergy to cefaclor noted Patient clinically improved with IV levaquin, her back pain improved, as well as her appetite. No nausea or vomiting. Blood cultures showed no growth. Leukocytosis resolved. Patient clinically improved and deemed stable for discharge. She is prescribed Levaquin to complete 14 days of treatment. She is informed to follow-up with her PCP as outpatient. Vital Signs/Physical Exam: Temp Pulse Resp BP Pulse Ox 97.8 F 74 18 106/58 L 99 10/07/22 08:00 10/07/22 08:00 10/07/22 08:00 10/07/22 08:00 10/07/22 08:00 General: Alert, In no apparent distress, Oriented x3 HEENT: Mucous membr. moist/pink Neck: Supple, JVD not distended Respiratory: Clear to auscultation bilaterally, Normal air movement Cardiovascular: No edema, Regular rate/rhythm, Normal S1 S2 Gastrointestinal: Soft and benign, Non-distended, No tenderness Musculoskeletal: No swelling Integumentary: No rashes Neurological: Normal strength at 5/5 x4 extr Laboratory Data at Discharge: WBC 7.60 K/uL (4.3-10.9) 10/07/22 03:17 Hgb 10.4 g/dL (12.0-15.0) L D 10/07/22 03:17 Hct 30.7 % (36.0-45.0) L 10/07/22 03:17 Plt Count 191 K/uL (152-406) 10/07/22 03:17 Sodium 138 mmol/L (136-145) 10/07/22 03:17 Potassium 3.6 mmol/L (3.5-5.1) 10/07/22 03:17 BUN 5 mg/dL (7-18) L 10/07/22 03:17 Creatinine 0.68 mg/dL (0.55-1.3) 10/07/22 03:17 Glucose 113 mg/dL (74-106) H 10/07/22 03:17 Phosphorus 1.9 mg/dL (2.5-4.9) L 10/07/22 03:17 Magnesium 1.8 mg/dL (1.8-2.4) 10/07/22 03:17 Total Bilirubin 0.6 mg/dL (0.2-1.0) 10/05/22 10:00 AST 13 U/L (15-37) L 10/05/22 10:00 ALT 17 U/L (12-78) 10/05/22 10:00 Alkaline Phosphatase 46 U/L (45-117) 10/05/22 10:00 Home Medications: Zolpidem Tartrate [Ambien] 10 mg PO DAILY 05/07/17 Norethindrone AC-Eth Estradiol [Loestrin 21 1-20 Tablet] 10 mg PO DAILY 10/05/22 SUMAtriptan succinate [Sumatriptan Succinate] 2 mg PO PRN PRN 10/05/22 methocarbamoL [Robaxin*] 1 tab PO PRN PRN 10/05/22 Ciprofloxacin HCl [Cipro] 500 mg PO BID #24 tab 10/07/22 Hydrocodone 5/APAP 325 [[place] 5/325*] 1 tab PO Q6H PRN #12 tab 10/07/22 New Medications: Ciprofloxacin HCl [Cipro] 500 mg PO BID #24 tab Hydrocodone 5/APAP 325 [[place] 5/325*] 1 tab PO Q6H PRN #12 tab PRN Reason: Pain Scale 5-7 (Moderate) Diet: Regular Activity: Ad porter Followup: NONE,NONE [Primary Care Provider] - 1-2 Weeks Time spent managing pt's care (in minutes): 34
== END 2022-10-07 14:21 | disposition home or self-care (01) | DRG 872 ==
LOC: ER 09:44 → ERHOLD 13:34 → 4TH 10-06 11:46
PROVIDERS: ADMIT Hospitalist; ATTEND Internal Medicine
DX: A41.51 Sepsis due to Escherichia coli [E. coli] (principal); N10 Acute pyelonephritis; G47.00 Insomnia, unspecified; G43.909 Migraine, unspecified, not intractable, without status migrainosus; Z88.1 Allergy status to other antibiotic agents; Z79.899 Other long term (current) drug therapy; Z20.822 Contact with and (suspected) exposure to COVID-19
CPT/HCPCS: 0240U; 36415; 74177; 80048; 80053; 81003; 81015; 81025; 83605; 83735; 84100; 85025; 85027; 87040; 87077; 87086; 87088; 87186; 94760; 99285; J1650; J2270; J2405; J3475; J7030; Q9967